=== PATIENT | female | born 1995 | race Caucasian/White ===

== ENCOUNTER 2017-11-17 20:02 | Emergency (ER) | payer MEDICAID ==
[2017-11-17] MEDS ORDERED: Ketorolac 30 MG/ML SDV IVPUSH ONE (20:06)
[2017-11-17] MEDS ORDERED: Ondansetron 4 MG/2 ML SDV IVPUSH ONE (20:06)
[2017-11-17] MEDS ORDERED: Sodium Chloride 0.9% 1,000 ML IV ONE (20:06)
--- NOTE | 2017-11-17 20:07 | EDM.PDOC ---
ED HPI GENERAL MEDICAL PROBLEM - General Stated Complaint: ABDOMINAL/BACK PAIN Time Seen by Provider: 11/17/17 20:07 Source of Information: Reports: Patient - History of Present Illness INITIAL COMMENTS - FREE TEXT/NARRATIVE: HISTORY AND PHYSICAL: History of present illness: [Patient presents with a complaint of right lower quadrant pain 4 out of 10 nonradiating she has a history of constipation and colicky abdominal pain she is taking antl-lfp-jabncuy bowel care as at this time no fever nausea vomiting chills sweats no chest pain shortness breath headache dizziness palpitation no acute bowel or urine symptoms ] Review of systems: As per history of present illness and below otherwise all systems reviewed and negative. Past medical history: As per history of present illness and as reviewed below otherwise noncontributory. Surgical history: As per history of present illness and as reviewed below otherwise noncontributory. Social history: No reported history of drug or alcohol abuse. Family history: As per history of present illness and as reviewed below otherwise noncontributory. Physical exam: HEENT: Atraumatic, normocephalic, pupils reactive, negative for conjunctival pallor or scleral icterus, mucous membranes moist, throat clear, neck supple, nontender, trachea midline. Lungs: Clear to auscultation, breath sounds equal bilaterally, chest nontender. Heart: S1S2, regular, negative for clicks, rubs, or JVD. Abdomen: Soft, nondistended, nontender. Negative for masses or hepatosplenomegaly. Negative for costovertebral tenderness. Pelvis: Stable nontender. Genitourinary: Deferred. Rectal: Deferred. Extremities: Atraumatic, negative for cords or calf pain. Neurovascular unremarkable. Neuro: Awake, alert, oriented. Cranial nerves II through XII unremarkable. Cerebellum unremarkable. Motor and sensory unremarkable throughout. Exam nonfocal. Diagnostics: [CBC CMP UA hCG lipase CT abdomen pelvis with and without contrast ] Therapeutics: [] liter normal saline bolus Zofran 8 mg IV Toradol 30 mg IV Continue hzmh-kdk-[id number] bowel care Clear liquid diet 12-24 hours Gas-X Reglan Impression: [ colicky abdominal pain ] Definitive disposition and diagnosis as appropriate pending reevaluation and review of above. - Related Data Allergies Allergy/AdvReac Type Severity Reaction Status Date / Time venom-honey bee Allergy Severe Other Verified 11/17/17 20:21 [bee venom (honey bee)] cantalope Allergy Severe Other Uncoded 11/17/17 20:21 seasonal Allergy Mild Other Uncoded 11/17/17 20:21 Home Meds: Home Meds Sertraline [Zoloft] 50 mg PO DAILY 11/17/17 [History] Past Medical History - Past Health History Medical/Surgical History: Denies Medical/Surgical History HEENT History: Reports: None Cardiovascular History: Reports: None Respiratory History: Reports: None Gastrointestinal History: Reports: None Genitourinary History: Reports: None Other OB/BYN History: patient states was told in ER last week that she was but she doesn't know how far along she is Musculoskeletal History: Reports: None Psychiatric History: Reports: None Hematologic History: Reports: None Oncologic (Cancer) History: Reports: None Social & Family History - Family History HEENT: Reports: None Cardiac: Reports: None Respiratory: Reports: None GI: Reports: None Musculoskeletal: Reports: None Neurological: Reports: None Psychiatric: Reports: None Hematologic: Reports: None Immunologic: Reports: None Dermatologic: Reports: None Oncologic: Reports: None - Living Situation & Occupation Living situation: Reports: , with Family Occupation: Unemployed ED ROS GENERAL - Review of Systems Review Of Systems: ROS reveals no pertinent complaints other than HPI. ED EXAM, GENERAL - Physical Exam Exam: See Below Course - Vital Signs Last Recorded V/S: Last Vital Signs Temp 98.4 F 11/17/17 20:19 Pulse 83 11/17/17 20:19 Resp 18 11/17/17 20:19 BP 133/86 11/17/17 20:19 Pulse Ox 96 11/17/17 20:19 - Orders/Labs/Meds Orders: Active Orders 24 hr Category Date Time Status Abdomen Pelvis w wo Cont [CT] Stat Exams 11/17/17 20:27 Taken CULTURE URINE [RM] Stat Lab 11/17/17 20:35 Ordered HCG QUALITATIVE,URINE [URCHEM] Stat Lab 11/17/17 20:35 Ordered UA W/MICROSCOPIC [URIN] Stat Lab 11/17/17 20:35 Ordered Labs: Laboratory Tests 11/17/17 11/17/17 11/17/17 Range/Units 20:35 20:35 20:35 WBC 9.25 (4.0-11.0) K/uL RBC 4.28 L (4.30-5.90) M/uL Hgb 13.6 (12.0-16.0) g/dL Hct 39.6 (36.0-46.0) % MCV 92.5 (80.0-98.0) fL MCH 31.8 (27.0-32.0) pg MCHC 34.3 (31.0-37.0) g/dL RDW Std Deviation 43.4 (28.0-62.0) fl RDW Coeff of Clarke 13 (11.0-15.0) % Plt Count 216 (150-400) K/uL MPV 12.90 H (7.40-12.00) fL Neut % (Auto) 57.0 (48.0-80.0) % Lymph % (Auto) 29.6 (16.0-40.0) % [place] % (Auto) 5.3 (0.0-15.0) % Eos % (Auto) 7.6 H (0.0-7.0) % Baso % (Auto) 0.5 (0.0-1.5) % Neut # (Auto) 5.3 (1.4-5.7) K/uL Lymph # (Auto) 2.7 H (0.6-2.4) K/uL [place] # (Auto) 0.5 (0.0-0.8) K/uL Eos # (Auto) 0.7 (0.0-0.7) K/uL Baso # (Auto) 0.1 (0.0-0.1) K/uL Nucleated RBC % 0.0 /100WBC Nucleated RBCs # 0 K/uL Sodium 140 (136-145) mmol/L Potassium 3.9 (3.5-5.1) mmol/L Chloride 105 (98-107) mmol/L Carbon Dioxide 25.7 (21.0-32.0) mmol/L BUN 11 (7.0-18.0) mg/dL Creatinine 0.9 (0.6-1.0) mg/dL Est Cr Clr Drug Dosing 84.67 mL/min Estimated GFR (MDRD) > 60.0 ml/min Glucose 147 H (74-106) mg/dL Calcium 9.0 (8.5-10.1) mg/dL Total Bilirubin 0.2 (0.2-1.0) mg/dL AST 18 (15-37) IU/L ALT 27 (14-63) IU/L Alkaline Phosphatase 98 (46-116) U/L Total Protein 7.9 (6.4-8.2) g/dL Albumin 3.9 (3.4-5.0) g/dL Globulin 4.0 H (2.0-3.5) g/dL Albumin/Globulin Ratio 1.0 L (1.3-2.8) Lipase 106 (73-393) U/L Urine Color YELLOW Urine Appearance CLEAR Urine pH 6.0 (5.0-8.0) Ur Specific [place] >= 1.030 (1.001-1.035) Urine Protein NEGATIVE (NEGATIVE) mg/dL Urine Glucose (UA) NEGATIVE (NEGATIVE) mg/dL Urine Ketones NEGATIVE (NEGATIVE) mg/dL Urine Occult Blood TRACE-INTACT (NEGATIVE) Urine Nitrite NEGATIVE (NEGATIVE) Urine Bilirubin NEGATIVE (NEGATIVE) Urine Urobilinogen 0.2 (<2.0) EU/dL Ur Leukocyte Esterase NEGATIVE (NEGATIVE) Urine RBC 1-3 (0-2/HPF) Urine WBC 0-1 (0-5/HPF) Ur Epithelial Cells OCCASIONAL (NONE-FEW) Urine Bacteria RARE (NEGATIVE) Urine HCG, Qual (NEGATIVE) 11/17/17 Range/Units 20:35 WBC (4.0-11.0) K/uL RBC (4.30-5.90) M/uL Hgb (12.0-16.0) g/dL Hct (36.0-46.0) % MCV (80.0-98.0) fL MCH (27.0-32.0) pg MCHC (31.0-37.0) g/dL RDW Std Deviation (28.0-62.0) fl RDW Coeff of Clarke (11.0-15.0) % Plt Count (150-400) K/uL MPV (7.40-12.00) fL Neut % (Auto) (48.0-80.0) % Lymph % (Auto) (16.0-40.0) % [place] % (Auto) (0.0-15.0) % Eos % (Auto) (0.0-7.0) % Baso % (Auto) (0.0-1.5) % Neut # (Auto) (1.4-5.7) K/uL Lymph # (Auto) (0.6-2.4) K/uL [place] # (Auto) (0.0-0.8) K/uL Eos # (Auto) (0.0-0.7) K/uL Baso # (Auto) (0.0-0.1) K/uL Nucleated RBC % /100WBC Nucleated RBCs # K/uL Sodium (136-145) mmol/L Potassium (3.5-5.1) mmol/L Chloride (98-107) mmol/L Carbon Dioxide (21.0-32.0) mmol/L BUN (7.0-18.0) mg/dL Creatinine (0.6-1.0) mg/dL Est Cr Clr Drug Dosing mL/min Estimated GFR (MDRD) ml/min Glucose (74-106) mg/dL Calcium (8.5-10.1) mg/dL Total Bilirubin (0.2-1.0) mg/dL AST (15-37) IU/L ALT (14-63) IU/L Alkaline Phosphatase (46-116) U/L Total Protein (6.4-8.2) g/dL Albumin (3.4-5.0) g/dL Globulin (2.0-3.5) g/dL Albumin/Globulin Ratio (1.3-2.8) Lipase (73-393) U/L Urine Color Urine Appearance Urine pH (5.0-8.0) Ur Specific [place] (1.001-1.035) Urine Protein (NEGATIVE) mg/dL Urine Glucose (UA) (NEGATIVE) mg/dL Urine Ketones (NEGATIVE) mg/dL Urine Occult Blood (NEGATIVE) Urine Nitrite (NEGATIVE) Urine Bilirubin (NEGATIVE) Urine Urobilinogen (<2.0) EU/dL Ur Leukocyte Esterase (NEGATIVE) Urine RBC (0-2/HPF) Urine WBC (0-5/HPF) Ur Epithelial Cells (NONE-FEW) Urine Bacteria (NEGATIVE) Urine HCG, Qual NEGATIVE (NEGATIVE) Meds: Medications Discontinued Medications Generic Name Dose Route Start Last Admin Trade Name Freq PRN Reason Stop Dose Admin Sodium Chloride 1,000 mls @ 999 mls/hr 11/17/17 20:06 11/17/17 20:53 Normal Saline IV 11/17/17 21:06 999 mls/hr STAT ONE Administration Iopamidol 100 ml 11/17/17 21:34 11/17/17 21:35 Isovue Multipack-370 (76%) IVPUSH 11/17/17 21:35 100 ml ONETIME STA Administration Ketorolac Tromethamine 30 mg 11/17/17 20:06 11/17/17 20:53 Toradol IVPUSH 11/17/17 20:07 30 mg ONETIME ONE Administration Ondansetron HCl 8 mg 11/17/17 20:06 11/17/17 20:54 Zofran IVPUSH 11/17/17 20:07 8 mg ONETIME ONE Administration Departure - Departure Time of Disposition: 22:42 Disposition: Home, Self-Care 01 Condition: Good Clinical Impression: Abdominal pain - Discharge Information Referrals: PCP,None [Primary Care Provider] - Additional Instructions: Clear liquid diet 12-24 hours water Gatorade apple juice may benefit Continue opgi-hkf-[id number] bowel cares as you have been Gas-X 4 times daily may benefit Medication as prescribed Follow-up with primary care in [address] [facility] - Primary Care [address] [place] [address] The following information is given to patients seen in the emergency department who are being discharged to home. This information is to outline your options for follow-up care. We provide all patients seen in our emergency department with a follow-up referral. The need for follow-up, as well as the timing and circumstances, are variable depending upon the specifics of your emergency department visit. If you don't have a primary care physician on staff, we will provide you with a referral. We always advise you to contact your personal physician following an emergency department visit to inform them of the circumstance of the visit and for follow-up with them and/or the need for any referrals to a consulting specialist. The emergency department will also refer you to a specialist when appropriate. This referral assures that you have the opportunity for follow-up care with a specialist. All of these measure are taken in an effort to provide you with optimal care, which includes your follow-up. Under all circumstances we always encourage you to contact your private physician who remains a resource for coordinating your care. When calling for follow-up care, please make the office aware that this follow-up is from your recent emergency room visit. If for any reason you are refused follow-up, please contact the [facility] emergency department at and asked to speak to the emergency department charge nurse. - My Orders Last 24 Hours: My Active Orders 11/17/17 20:27 Abdomen Pelvis w wo Cont [CT] Stat 11/17/17 20:35 CULTURE URINE [RM] Stat HCG QUALITATIVE,URINE [URCHEM] Stat UA W/MICROSCOPIC [URIN] Stat - Assessment/Plan Last 24 Hours: My Active Orders 11/17/17 20:27 Abdomen Pelvis w wo Cont [CT] Stat 11/17/17 20:35 CULTURE URINE [RM] Stat HCG QUALITATIVE,URINE [URCHEM] Stat UA W/MICROSCOPIC [URIN] Stat
[2017-11-17 21:05] LABS: CHLORIDE,CL 105 mmol/L (98-107); SODIUM,NA 140 mmol/L (136-145)
[2017-11-17] MEDS ORDERED: Iopamidol 755 MG/ML 500 ML Multipack Bottle IVPUSH STA (21:34)
[2017-11-18 01:28] VITALS: BP 130/73
--- NOTE | 2017-11-20 09:30 | CT ---
EXAM DATE: 11/17/17 PATIENT'S AGE: 22 Patient: SUNIL PERSAUD Facility: [place], [place] Site . Site : 1995 Study: CT Abdomen/Pelvis W/ and W/O Cont [id number]/18/2018 9:32:05 PM Ordering Physician: Alyssa Adkins Final Report: INDICATION: Right lower quadrant pain with nausea. 22-year-old female. TECHNIQUE: CT abdomen and pelvis acquired without and with i.v. 100 mL Isovue 370. Coronal and sagittal reformats were obtained. COMPARISON: None. 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 Lower chest: Unremarkable. Liver: Unremarkable. Spleen: Unremarkable. Pancreas: Unremarkable. Gallbladder and bile ducts: Unremarkable. Kidneys: Unremarkable. No kidney or ureteral stones and no hydronephrosis seen. Adrenal glands: Unremarkable. GI tract: Unremarkable. The appendix is normal in appearance and size. Vascular: Unremarkable. Lymph nodes: Unremarkable. Miscellaneous: Unremarkable. No pneumoperitoneum is seen. No significant ascites is noted. Tiny fat containing periumbilical hernia. Pelvic Organs: Unremarkable. Bones: Unremarkable for age. IMPRESSION: 1. No clear etiology identified for patient`s clinical symptoms of right lower quadrant pain. 2. Normal appendix. 3. No obstructing renal or ureteral calculi. Dictated by Mynor Monte MD @ 11/17/2017 9:54:30 PM Please note that all CT scans at this facility use dose modulation, iterative reconstruction, and/or weight-based dosing when appropriate to reduce radiation dose to as low as reasonably achievable. Dictated by: Mynor Monte MD @ 11/17/2017 21:54:36 (Electronic Signature) Report Signed by Proxy. [facility] CENTERKaterina
== END 2017-11-17 23:15 | disposition home or self-care (01) ==
LOC: MW.ED 20:02
DX: R10.31 Right lower quadrant pain (principal); Z91.030 Bee allergy status; Z79.899 Other long term (current) drug therapy; Z91.013 Allergy to seafood
CPT/HCPCS: 36415; 74178; 80053; 81001; 81025; 83690; 85025; 87086; 96361; 96374; 96375; 99284; J1885; J2405; J7040; Q9967

== ENCOUNTER 2018-12-09 12:58 | Emergency (ER) | payer MEDICAID ==
--- NOTE | 2018-12-09 13:07 | EDM.PDOC ---
ED HPI GENERAL MEDICAL PROBLEM - General Stated Complaint: SEVERE BACK AND NECK PAIN Time Seen by Provider: 12/09/18 12:59 Source of Information: Reports: Patient History Limitations: Reports: No Limitations - History of Present Illness INITIAL COMMENTS - FREE TEXT/NARRATIVE: History of present illness: []Patient has had 2 days of exacerbation of pre-existing left-sided sciatica. She denies any new trauma or doing any strenuous physical activity in the last few days may have caused this exacerbation. She states the pain is now radiating up her back and neck and causing a right-sided migraine. Review of systems: As per history of present illness and below otherwise all systems reviewed and negative. Past medical history: As per history of present illness and as reviewed below otherwise noncontributory. Surgical history: As per history of present illness and as reviewed below otherwise noncontributory. Social history: No reported history of drug or alcohol abuse. Family history: As per history of present illness and as reviewed below otherwise noncontributory. Physical exam: General: Well developed, well nourished in NAD HEENT: Atraumatic, normocephalic, pupils reactive, negative for conjunctival pallor or scleral icterus, mucous membranes moist, throat clear, neck supple, nontender, trachea midline. Lungs: Clear to auscultation, breath sounds equal bilaterally, chest nontender. Heart: S1S2, regular, negative for clicks, rubs, or JVD. Abdomen: NABS, Soft, nondistended, nontender. Negative for masses or hepatosplenomegaly. Negative for costovertebral tenderness. Pelvis: Stable nontender. Genitourinary: Deferred. Rectal: Deferred. Extremities: Atraumatic, negative for cords or calf pain. Neurovascular unremarkable. Neuro: Awake, alert, oriented. Cranial nerves II through XII unremarkable. Cerebellum unremarkable. Motor and sensory unremarkable throughout. Exam nonfocal. Skin:warm and dry Diagnostics: None Therapeutics: Patient refused any IV or IM medications received Zofran ODT and Norflex ED Course: Stable Impression: Acute exacerbation of chronic back pain Prescriptions: Flexeril, diclofenac Plan: Take meds as directed, follow up with your primary care physician, return to ER if symptoms worsen or change. Definitive disposition and diagnosis as appropriate pending reevaluation and review of above. left lower back Pain Score (Numeric/FACES): 7 - Related Data Allergies Allergy/AdvReac Type Severity Reaction Status Date / Time venom-honey bee Allergy Severe Other Verified 12/09/18 13:15 [bee venom (honey bee)] cantalope Allergy Severe Other Uncoded 12/09/18 13:15 seasonal Allergy Mild Other Uncoded 12/09/18 13:15 Home Meds: Home Meds Cyclobenzaprine [Flexeril] 10 mg PO BID PRN #12 tab 12/09/18 [Rx] Diclofenac Sodium [Voltaren] 75 mg PO BIDMEALS PRN #20 tab.cr 12/09/18 [Rx] True Vision 12/09/18 [History] Past Medical History - Past Health History Medical/Surgical History: Denies Medical/Surgical History HEENT History: Reports: None Cardiovascular History: Reports: None Respiratory History: Reports: None Gastrointestinal History: Reports: None Genitourinary History: Reports: None Other PROOF INSPECTOR History: patient states was told in ER last week that she was but she doesn't know how far along she is Musculoskeletal History: Reports: None Psychiatric History: Reports: None Hematologic History: Reports: None Oncologic (Cancer) History: Reports: None - Infectious Disease History Infectious Disease History: Reports: Chicken Pox - Past Surgical History Female Surgical History: Reports: Section, D&C Social & Family History - Family History HEENT: Reports: None Cardiac: Reports: None Respiratory: Reports: None GI: Reports: None Musculoskeletal: Reports: None Neurological: Reports: None Psychiatric: Reports: None Hematologic: Reports: None Immunologic: Reports: None Dermatologic: Reports: None Oncologic: Reports: None - Caffeine Use Caffeine Use: Reports: None - Living Situation & Occupation Living situation: Reports: , with Family Occupation: Unemployed ED ROS GENERAL - Review of Systems Review Of Systems: See Below ED EXAM, UPPER BACK/NECK PAIN - Physical Exam Exam: See Below Course - Vital Signs Last Recorded V/S: Last Vital Signs Temp 96.8 F 12/09/18 13:12 Pulse 81 12/09/18 13:12 Resp 18 12/09/18 13:12 BP 144/84 H 12/09/18 13:12 Pulse Ox 99 12/09/18 13:12 - Orders/Labs/Meds Meds: Medications Discontinued Medications Generic Name Dose Route Start Last Admin Trade Name Freq PRN Reason Stop Dose Admin Cyclobenzaprine HCl 10 mg 06/09/19 13:37 12/09/18 13:47 Flexeril PO 12/09/18 13:38 10 mg ONETIME ONE Administration Ondansetron HCl 4 mg 12/09/18 13:43 12/09/18 13:47 Zofran Odt PO 12/09/18 13:44 4 mg ONETIME ONE Administration Departure - Departure Time of Disposition: 14:02 Disposition: Home, Self-Care 01 Condition: Good Clinical Impression: Acute exacerbation of chronic low back pain - Discharge Information *PRESCRIPTION DRUG MONITORING PROGRAM REVIEWED*: No *COPY OF PRESCRIPTION DRUG MONITORING REPORT IN PATIENT KASHMIR: No Prescriptions: Cyclobenzaprine [Flexeril] 10 mg PO BID PRN #12 tab PRN Reason: Pain Diclofenac Sodium [Voltaren] 75 mg PO BIDMEALS PRN #20 tab.cr PRN Reason: Pain Referrals: PCP,None [Primary Care Provider] - Additional Instructions: The following information is given to patients seen in the emergency department who are being discharged to home. This information is to outline your options for follow-up care. We provide all patients seen in our emergency department with a follow-up referral. The need for follow-up, as well as the timing and circumstances, are variable depending upon the specifics of your emergency department visit. If you don't have a primary care physician on staff, we will provide you with a referral. We always advise you to contact your personal physician following an emergency department visit to inform them of the circumstance of the visit and for follow-up with them and/or the need for any referrals to a consulting specialist. The emergency department will also refer you to a specialist when appropriate. This referral assures that you have the opportunity for follow-up care with a specialist. All of these measure are taken in an effort to provide you with optimal care, which includes your follow-up. Under all circumstances we always encourage you to contact your private physician who remains a resource for coordinating your care. When calling for follow-up care, please make the office aware that this follow-up is from your recent emergency room visit. If for any reason you are refused follow-up, please contact the [facility] Emergency Department at and asked to speak to the emergency department charge nurse. [facility] Primary Care [address] [place] [id number]
[2018-12-09 13:15] VITALS: BP 144/84
[2018-12-09] MEDS ORDERED: Cyclobenzaprine 10 MG Tab PO ONE (13:37)
[2018-12-09] MEDS ORDERED: Ondansetron 4 MG Tab.DIS PO ONE (13:43)
== END 2018-12-09 14:25 | disposition home or self-care (01) ==
LOC: MW.ED 12:58
DX: G89.29 Other chronic pain (principal); M54.5 Low back pain; Z91.09 Other allergy status, other than to drugs and biological substances; Z91.030 Bee allergy status
CPT/HCPCS: 99283; A9270

== ENCOUNTER 2022-10-10 02:04 | Emergency (ER) | payer BC, MEDICAID ==
[2022-10-10] MEDS ORDERED: Acetaminophen 325 MG Tab PO STA ×2 (03:39→03:47)
[2022-10-10] MEDS ORDERED: Acetaminophen 325 MG/10.15 ML ML PO STA (03:43)
[2022-10-10] MEDS ORDERED: metroNIDAZOLE 250 MG Tab PO ONE (04:33)
[2022-10-10 04:36] LABS: CARBON DIOXIDE,CO2 25.1 mmol/L (21.0-32.0); POTASSIUM,K 3.7 mmol/L (3.5-5.1)
[2022-10-10 05:01] VITALS: BP 151/96; PULSE 87
== END 2022-10-10 05:01 | disposition home or self-care (01) ==
LOC: MW.ED 02:04
DX: O20.0 Threatened abortion (principal); Z86.16 Personal history of COVID-19; Z91.030 Bee allergy status; Z88.8 Allergy status to other drugs, medicaments and biological substances; Z3A.08 8 weeks gestation of pregnancy
CPT/HCPCS: 36415; 76817; 80053; 81003; 85025; 86900; 86901; 99284; A9270